=== PATIENT | female | born 1985 | race African-American/Black ===

== ENCOUNTER 2017-01-18 11:07 | Emergency (ER) | payer BC, MEDICAID ==
[~2017-01-18] VITALS: Ht 162.6 cm; Wt 72.0 kg
[2017-01-18 11:10] VITALS: BP 138/78
== END 2017-01-18 13:35 | disposition home or self-care (01) ==
LOC: ER 11:13
DX: R05 Cough (principal); R09.81 Nasal congestion
CPT/HCPCS: 71010; 81025; 99283